=== PATIENT | female | born 2000 | race Asian ===

== ENCOUNTER 2023-12-05 13:10 | Emergency (ER) | payer OTHER, BC ==
[~2023-12-05] VITALS: Ht 172.7 cm; Wt 96.1 kg
[2023-12-05 13:48] VITALS: BP 114/57; PULSE 79; RESP 16; TEMP 98.2; O2SAT 99
[2023-12-05 14:55] LABS: BASOPHILS % 0.7 % (0.0-2.0); DIFFERENTIAL COMMENT 0; EOSINOPHILS % 0.7 % (0.0-5.0); HEMATOCRIT. 39.4 % (36.0-48.0); HEMOGLOBIN. 12.1 g/dL (12.0-16.0); MEAN CORPUSCULAR HEMOGLOBIN 25.6 pg (28.0-32.0); MEAN CORPUSCULAR HGB CONC 30.8 g/dL (31.0-37.0); MEAN CORPUSCULAR VOLUME 83.2 fL (81.0-99.0); MEAN PLATELET VOLUME 8.2 fl (7.4-10.4); MONOCYTES % 9.8 % (2.0-8.0); NEUTROPHILS % 55.8 % (40.0-76.0); PLATELET 353 x1000/uL (130-400); RED BLOOD CELL COUNT 4.73 mill/uL (4.2-5.4); RED CELL DISTRIBUTION WIDTH 16.9 % (11.6-14.6); WHITE BLOOD COUNT 5.5 x1000/uL (4.5-11.0)
[2023-12-05 15:00] LABS: CHLORIDE 107 mEq/L (98-107); POTASSIUM 3.2 mEq/L (3.5-5.1); SODIUM 139 mEq/L (136-145)
[2023-12-05 15:01] LABS: CARBON DIOXIDE 24 mEq/L (21-32)
[2023-12-05 15:02] LABS: CALCIUM 9.1 mg/dL (8.7-10.4)
[2023-12-05 15:05] LABS: CLARITY URINE CLEAR (CLEAR); COLOR URINE YELLOW (YELLOW); GLUCOSE URINE NEGATIVE (NEGATIVE); KETONES URINE TRACE (NEGATIVE); LEUKOCYTE ESTERASE URINE 3+ (NEGATIVE); NITRITE URINE NEGATIVE (NEGATIVE); OCCULT BLOOD URINE NEGATIVE (NEGATIVE); PH URINE 7.5 (4.5-8.0); PROTEIN URINE TRACE (NEGATIVE); SPECIFIC GRAVITY URINE 1.016 (1.005-1.030)
[2023-12-05 15:06] LABS: CREATININE 0.9 mg/dL (0.6-1.0); GLUCOSE 107 mg/dL (70-105); UREA NITROGEN BLOOD 5 mg/dL (9-23)
[2023-12-05 15:08] LABS: ALANINE AMINOTRANSFERASE 16 IU/L (10-49); ALBUMIN 4.5 g/dL (3.2-4.8); ASPARTATE AMINOTRANSFERASE 23 IU/L (<34); HCG SCREEN NEGATIVE
[2023-12-05 15:09] LABS: BILIRUBIN DIRECT 0.2 mg/dL (<=3.0); BILIRUBIN TOTAL 0.4 mg/dL (0.1-1.0); PROTEIN TOTAL 7.5 g/dL (6.0-8.3)
[2023-12-05] MEDS: ONDANSETRON 4MG ODT PO ONE (15:49)
[2023-12-05 16:08] LABS: BACTERIA URINE 1+; RBC URINE 0-2 /hpf (0-2); SQUAMOUS EPITHELIAL CELL URINE FEW /lpf (RARE/1+)
[2023-12-05 16:09] LABS: WBC URINE 50-100 /hpf (0-2)
[2023-12-05] MEDS ORDERED: CEFP200T14 MT (16:48)
[2023-12-05] MEDS ORDERED: IBUP-2029 MT (17:02)
== END 2023-12-05 17:35 | disposition home or self-care (01) ==
LOC: ER 13:10
DX: N39.0 Urinary tract infection, site not specified (principal)
CPT/HCPCS: 99284; 76830; 76856; 80076; 80048; 81003; 81025; 84703; 83690; 85025; 87086; 87186; 87077; 36415; Q0162